=== PATIENT | female | born 1975 | race Caucasian/White ===

== ENCOUNTER → 2016-11-12 | Outpatient (CLI) | payer OTHER ==
[~2016-11-12] MED LIST: ASPIRIN325 MG PO; BENTYL10 MG PO; BIRTH CONTROL1 EAC1 PO; CLARITIN10 MG PO; COREG3.125 MG PO; HYDROCODONE BIT1 T11 PO; KEFLEX500 MG PO; MEDROL DOSEPAK4 MG PO; PREDNISOL 5 ML5 M1 PO; PRILOSEC40 MG PO; TRAMADOL HCL50 MG PO; ZANTAC 150150 MG PO; Zofran4 MG PO
--- NOTE | ~2016-11-12 | HM ---
[place], [place] HOLTER MONITOR REPORT NAME: ROSSANA GONZALES UNIT #: [id number] ROOM: DOCTOR: JAEL BALL MD BIRTHDATE: [birth year] DOS: 11/12/2016 HOLTER REPORT The patient remained in sinus rhythm throughout the entire period. Minimum heart rate 53, maximum heart rate of 128 beats per minute. The patient had a short episode of, what appears to be, slow ventricular tachycardia. The maximum rate is 16 beats with a heart rate of 117 beats per minute. Isolated PVCs are present. No fast ventricular tachycardia. No symptoms noted during these episodes. No pauses are present. FINAL IMPRESSION: Normal Holter monitor with an episode of slow ventricular tachycardia of 117 beats per minute. The longest beat is 16 beats at 117 beats. No other supraventricular dysrhythmia. Isolated PVCs. No pauses. JAEL BALL MD CM:HOLTER:HOLTER MONITOR REPORT 1530 1210 JAEL BALL MD
== END | disposition home or self-care (01) ==
LOC: CARD 09:58
DX: I49.3 Ventricular premature depolarization (principal)

== ENCOUNTER → 2020-09-20 | Outpatient (CLI) | payer OTHER ==
[2020-09-20 17:04] LABS: BASO % 0.4 % (0.0-1.0); EOS # 0.1 10*3/uL (0.0-0.4); EOS % 1.1 % (1.0-4.0); HEMATOCRIT 42.6 % (37.0-47.0); LYMPH # 2.5 10*3/uL (1.3-4.4); LYMPH % 27.3 % (27.0-41.0); MEAN CELL VOLUME 95.9 fl (81.0-99.0); MEAN CORPUSCULAR HGB 30.9 pg (27.0-31.0); MEAN CORPUSCULAR HGB CONC 32.2 g/dl (33.0-37.0); MEAN PLATELET VOLUME 9.1 fl (9.6-12.3); MONO # 0.8 10*3/uL (0.1-1.0); MONO % 8.7 % (3.0-9.0); NEUT # 5.8 10*3/uL (2.3-7.9); NEUT % 62.3 % (47.0-73.0); PLATELET COUNT AUTOMATED 399 10*3/uL (130-400); RED BLOOD COUNT 4.44 10*6/uL (4.10-5.10); RED CELL DISTRI WIDTH 14.1 % (0-14.5); WHITE BLOOD COUNT 9.3 10*3/uL (4.8-10.8)
== END | disposition home or self-care (01) ==
LOC: LAB 15:56 → US 16:00
PROVIDERS: ATTEND Nurse Practitioner Women's Health
DX: N92.1 Excessive and frequent menstruation with irregular cycle (principal); R53.83 Other fatigue; N93.9 Abnormal uterine and vaginal bleeding, unspecified

== ENCOUNTER → 2022-11-08 | Outpatient (CLI) | payer OTHER | END | disposition home or self-care (01) | LOC: CARD 12:31 | PROVIDERS: ATTEND Internal Medicine Cardiovascular Disease | DX: R06.09 Other forms of dyspnea (principal) ==

== ENCOUNTER → 2022-12-04 | Outpatient (CLI) | payer OTHER | END | disposition home or self-care (01) | LOC: CARD 02:35 | PROVIDERS: ATTEND Internal Medicine Cardiovascular Disease | DX: I51.9 Heart disease, unspecified (principal); R94.31 Abnormal electrocardiogram [ECG] [EKG]; I25.2 Old myocardial infarction ==